=== PATIENT | female | born 1980 | race African-American/Black ===

== ENCOUNTER 2018-12-16 16:56 | Emergency (ER) | payer OTHER ==
[~2018-12-16] VITALS: Ht 175.3 cm; Wt 66.7 kg
[2018-12-16] MEDS ORDERED: IMITREX 50 MG T50 MG PO (17:11)
[2018-12-16] MEDS ORDERED: FLEXERIL PO (17:11)
[2018-12-16 18:04] LABS: ABSOLUTE EOSINOPHILS 0.1 thou/uL (0.0-0.7); ABSOLUTE LYMPHOCYTES 1.2 thou/uL (0.8-5.3); ABSOLUTE MONOCYTES 0.5 thou/uL (0.0-1.2); ABSOLUTE NEUTROPHILS 3.3 thou/uL (1.6-8.1); BASOPHILS 0.8 %; HEMATOCRIT 39.3 % (37.0-47.0); HEMOGLOBIN 13.3 gm/dL (12.0-15.0); MCH 28.5 pg (26.0-34.0); MCHC 33.7 g/dL (28.0-37.0); MCV 84.6 fL (80.0-100.0); MONOCYTES 9.6 %; MPV 8.7 fl. (7.2-11.1); NUCLEATED RBCS 0 /100WBC; PLATELET COUNT* 234 thou/uL (150-400); POLYS 64.6 %; RBC 4.65 mil/uL (4.20-5.00); WBC 5.1 thou/uL (4.0-11.0)
[2018-12-16 18:15] LABS: INFLUENZA A ANTIGEN None Detected (None Detect)
[2018-12-16 18:17] LABS: CALCIUM 8.9 mg/dL (8.5-10.1); POTASSIUM 3.6 mmol/L (3.5-5.1)
[2018-12-16 18:22] LABS: ALBUMIN 3.4 g/dL (3.4-5.0); TOTAL BILIRUBIN 0.3 mg/dL (<0.1-1.0); TOTAL PROTEIN 7.7 g/dL (6.4-8.2)
[2018-12-16 18:24] LABS: MONOTEST (MONOSPOT)* NEGATIVE (Negative)
[2018-12-16 18:25] LABS: URINE BILIRUBIN NEGATIVE (Negative); URINE BLOOD TRACE (Negative); URINE CLARITY CLEAR; URINE COLOR YELLOW; URINE GLUCOSE-RANDOM NEGATIVE (Negative); URINE KETONES NEGATIVE (Negative); URINE LEUKOCYTES-REFLEX NEGATIVE (Negative); URINE NITRITE-REFLEX NEGATIVE (Negative); URINE PROTEIN NEGATIVE (Negative); URINE UROBILINOGEN 0.2 E.U./dl (0.2-1.0)
[2018-12-16] MEDS ORDERED: NABUMETONE 750750 M1 PO (18:59)
[2018-12-16] MEDS ORDERED: NORCO 5-325 TA1 EACH PO (18:59)
[2018-12-16] MEDS ORDERED: ONDANSETRON HCL4 M2 PO (19:00)
[2018-12-16 19:10] VITALS: BP 99/56
== END 2018-12-16 19:10 | disposition home or self-care (01) ==
LOC: M.ERS 16:56
PROVIDERS: Nurse Practitioner Family
DX: J11.1 Influenza due to unidentified influenza virus with other respiratory manifestations (principal); R59.1 Generalized enlarged lymph nodes; G43.909 Migraine, unspecified, not intractable, without status migrainosus; Z98.890 Other specified postprocedural states; Z88.1 Allergy status to other antibiotic agents